=== PATIENT | female | born 1955 | race Caucasian/White ===

== ENCOUNTER → 2017-08-03 | Outpatient (CLI) | payer OTHER ==
[~2017-08-03] MED LIST: ACET-24 PO; ASPEC81 PO; ASPI81TA28 PO; ATV/1 PO; BIOTCAP2 PO; BUPR-79 PO; CALCTAB5 PO; CHOL100041 PO; CHOL1CAP74 PO; CHOL1TAB46 PO; CHOLTAB9 PO; CITA10TA8 PO; CITA40TA12 PO; CLB200 PO; CLC100 PO; CLOP1TAB15 PO; CYNI1000 INJ; FERR1TAB23 PO; FESO8TAB PO; LEVO-14 PO; MULTTAB58 PO; ONDA8TAB6 PO; PLQ200 PO; PRT/40 PO; RXC5 PO; SIMV20TA2 PO; SOLI10TA2 PO; TRAM-10 PO
== END ==
LOC: C.PAPS 09:36
PROVIDERS: ATTEND Obstetrics & Gynecology
DX: Z12.4 Encounter for screening for malignant neoplasm of cervix (principal); Z11.51 Encounter for screening for human papillomavirus (HPV)

== ENCOUNTER 2017-09-01 08:57 | Inpatient (IN) | payer OTHER ==
[2017-08-07 13:58] VITALS: BMI 32.0
--- NOTE | 2017-08-07 14:47 | PAT Medication Instructions ---
Service Date Aug 07, 2017. Current Home Medication List Aspirin (Aspirin Ec), 81 MG PO qa Biotin (Biotin 5000), 10 MG PO BID Bupropion (Wellbutrin Sr), 150 MG PO BID Cholecalciferol (D 1000), 2 TAB PO QPM Cholecalciferol (D3-1000), 1 TAB PO QAM Citalopram Hydrobromide (Celexa), 40 MG PO QAM Cyanocobalamin (Cyanocobalamin), 1,000 MCG INJ [id number] Ferrous Sulfate (Iron), 325 MG PO QAM Fesoterodine Fumarate (Toviaz), 1 TAB PO qa Lorazepam (Ativan), 1 MG PO BID Multiple Vitamin (Multivitamin), 1 TABLET PO QAM Pantoprazole (Pantoprazole Sodium), 40 MG PO BID Simvastatin (Zocor), 20 MG PO QPM Tramadol (Ultram), 50 MG PO Q6H PRN for Pain Medication Instructions For Your Scheduled Surgery - Hold the following medications 2 weeks prior to surgery: Biotin (Biotin 5000), 10 MG PO BID - Continue as directed: Cyanocobalamin (Cyanocobalamin), 1,000 MCG INJ [id number] - Hold the following medications the morning of surgery: Cholecalciferol (D3-1000), 1 TAB PO QAM Ferrous Sulfate (Iron), 325 MG PO QAM Multiple Vitamin (Multivitamin), 1 TABLET PO QAM - Take the following medications the morning of surgery with a sip of water OTHERWISE NOTHING TO EAT OR DRINK AFTER MIDNIGHT: Bupropion (Wellbutrin Sr), 150 MG PO BID Pantoprazole (Pantoprazole Sodium), 40 MG PO BID Tramadol (Ultram), 50 MG PO Q6H PRN for Pain (may take if needed up to 4 hours prior to surgery) Aspirin (Aspirin Ec), 81 MG PO qAM Citalopram Hydrobromide (Celexa), 40 MG PO QAM Fesoterodine Fumarate (Toviaz), 1 TAB PO qAM Lorazepam (Ativan), 1 MG PO BID - Take the following medications as scheduled the night before surgery: Bupropion (Wellbutrin Sr), 150 MG PO BID Pantoprazole (Pantoprazole Sodium), 40 MG PO BID Tramadol (Ultram), 50 MG PO Q6H PRN for Pain Cholecalciferol (D 1000), 2 TAB PO QPM Simvastatin (Zocor), 20 MG PO QPM Lorazepam (Ativan), 1 MG PO BID If you have any questions please call us at [phone] or [phone] or [phone]
[2017-08-07 15:22] LABS: BASO % 0.6 %; BASO ABS # 0.03 K/uL (0-0.2); COMPLETE YES; EOS % 1.7 %; HEMATOCRIT 37.2 % (37-47); IG% 0.9 %; LYMPH % 21.7 %; LYMPH ABS # 1.18 K/uL (1.2-3.4); MEAN CELL VOLUME 87.7 fL (80-100); MEAN CORPUSCULAR HGB CONC 33.1 g/dl (32-36); MEAN PLATELET VOLUME 10.4 fL (7.4-10.4); MONO % 6.8 %; NEUT % 68.3 %; PLATELET COUNT 202 K/uL (130-400); RED BLOOD COUNT 4.24 M/uL (4.2-5.4); WHITE BLOOD COUNT 5.43 K/uL (4.8-10.8)
[2017-08-07 15:30] LABS: PARTIAL THROMBOPLASTIN RATIO 1.1
[2017-08-07 15:45] LABS: BUN/CREATININE RATIO 11.6 (10-20); CREATININE 0.78 mg/dl (0.60-1.20); POTASSIUM 4.1 mmol/L (3.5-5.1)
[2017-08-08 05:56] LABS: ESTIMATED AVERAGE GLUCOSE 80 mg/dl; HA1C FLAG Normal (Normal)
[2017-08-14 10:05] LABS: URINE APPEARANCE CLEAR (CLEAR); URINE BILIRUBIN NEG (NEG); URINE COLOR YELLOW; URINE NITRITE NEG (NEG); URINE SPECIFIC GRAVITY 1.012 (1.000-1.030); UROBILINOGEN NEG (NEG)
--- NOTE | 2017-08-14 10:06 | DIAGNOSTIC IMAGING REPORT ---
CHEST 2 VIEWS ROUTINE HISTORY: Preop. COMPARISON: Chest 04/16/2013. FINDINGS: The lungs are clear. Cardiac silhouette is normal in size. No pleural effusions. No pneumothorax. Cholecystectomy. Epigastric surgical clips. IMPRESSION: No acute process. Electronically signed by: Rivera Park M.D. 08/14/2017 10:05 AM Dictated Date/Time: 08/14/2017 10:03 AM
[2017-08-14 10:09] LABS: MANUAL MICROSCOPIC REQUIRED? NO; REVIEW REQ? NO
--- NOTE | 2017-08-21 12:41 | History and Physical ---
History & Physical Date Aug 21, 2017. Chief Complaint Right knee pain History of Present Illness The patient is a 62 year old female with complaints of right knee pain. She has had pain that has come and go for some time but it is now constant. She has tried cortisone injections, NSAIDs, and PT with no relief. This affects her ADLs. She would like to proceed with a Right total knee arthroplasty. Past Medical/Surgical History Medical Problems: (1) Acute cholecystitis (2) Anemia (3) Anxiety (4) section (5) Depression (6) Diabetes (7) Gastric Bypass (8) Heart disease (9) History of percutaneous transluminal coronary angioplasty (10) Hyperlipidemia (11) Lightheadedness (12) Placement of stent in coronary artery (13) UTI (urinary tract infection) Additional History Hepatic Disease: No Endocrine Disorder: No Kidney Disease: No Hypertension: No Heart Disease: No Bleeding Tendencies: No Infectious Diseases: No Allergies Coded Allergies: Iodinated Contrast Media (Verified Allergy, Intermediate, SOB; HIVES (IVP DYE), 08/07/17) Morphine (Unverified Allergy, Mild, ITCHY, 08/07/17) Home Medications Scheduled Aspirin (Aspirin Ec), 81 MG PO qa Biotin (Biotin 5000), 10 MG PO BID Bupropion (Wellbutrin Sr), 150 MG PO BID Cholecalciferol (D 1000), 2 TAB PO QPM Cholecalciferol (D3-1000), 1 TAB PO QAM Citalopram Hydrobromide (Celexa), 40 MG PO QAM Cyanocobalamin (Cyanocobalamin), 1,000 MCG INJ [id number] Ferrous Sulfate (Iron), 325 MG PO QAM Fesoterodine Fumarate (Toviaz), 1 TAB PO qa Lorazepam (Ativan), 1 MG PO BID Multiple Vitamin (Multivitamin), 1 TABLET PO QAM Pantoprazole (Pantoprazole Sodium), 40 MG PO BID Simvastatin (Zocor), 20 MG PO QPM Scheduled PRN Tramadol (Ultram), 50 MG PO Q6H PRN for Pain Physical Examination Skin: warm/dry, no rash Eyes: normal inspection, EOMI ENT: normal ENT inspection Head: normocephalic, atraumatic Neck: supple, no adenopathy Respiratory/Chest: lungs clear, normal breath sounds Cardiovascular: regular rate, rhythm, no murmur Abdomen / GI: normal bowel sounds, non tender Extremities: normal inspection, + pertinent finding (Medial joint line tenderness, 0-120 ROM. ) Neurologic/Psych: no motor/sensory deficits, alert, oriented x 3 Diagnosis Primary osteoarthritis of right knee Plan of Treatment Patient is scheduled for a Right total knee arthroplasty. She has tried cortisone injection, PT, and NSAIDs with no relief and would like to proceed with a right total knee arthroplasty. Risks and benefits to surgery were discussed that included but no limited to increased pain, infection, DVT, need for revision surgeries, failure to relieve all symptoms, damage to blood vessels , damage to nerves, PE, and anesthesia risks were all discussed. The patient understands these risks and wishes to proceed. All questions were answered to their satisfaction.
[~2017-09-01] VITALS: Ht 172.7 cm; Wt 96.6 kg
[~2017-09-01 08:57] MED LIST changes: -ACET-24 PO; +ACETAMINOPHEN 500 MG TAB PO SCH; -ASPEC81 PO; +ATROPINE SULFATE 0.1 MG/ML 5ML SYR IV PRN; +BUPIVACAINE 0.25% 30 ML VIAL ONE; +BUPIVACAINE 0.5 % 5 MG/1 ML PF 10ML VIAL ONE; -CALCTAB5 PO; +CEFAZOLIN 2000 MG/60 ML D5W 60 ML IV SCH; -CHOL1CAP74 PO; -CHOL1TAB46 PO; -CITA10TA8 PO; -CLB200 PO; -CLC100 PO; -CLOP1TAB15 PO; +CeleBREX 200 MG CAP PO SCH; +DEXAMETHASONE 4 MG TAB PO SCH; +EpHEDrine SULFATE INJ 50 MG/ML AMP IV PRN; +FAMOTIDINE 20 MG TAB PO SCH; +FENTANYL CITRATE INJ 50 MCG/1 ML 2 ML VIAL IV PRN; +GABAPENTIN 300 MG CAP PO SCH; +LACTATED RINGER'S 1000ML 1,000 ML IV SCH; +LACTATED RINGER'S 1000ML 500 ML IV ONE; +LACTATED RINGER'S 1000ML IV SCH; -LEVO-14 PO; +METOCLOPRAMIDE HCL 10 MG TAB PO SCH; -ONDA8TAB6 PO; +ONDANSETRON INJ 2 MG/ML 2 ML VIAL IV PRN; -PLQ200 PO; +ROPIVACAINE 5MG/ML 30 ML 150 MG, BUPIVACAINE/EPINEPHR 0.5% MPF 30 ML, KETOROLAC TROMETH... INFIL SCH; -RXC5 PO; -SOLI10TA2 PO
[2017-09-01 09:12] VITALS: BP 131/104; PULSE 88; TEMP 36.9; O2SAT 97; Ht 172.7 cm; Wt 96.6 kg
[2017-09-01] MEDS ORDERED: CITA10TA8 PO (09:45)
[2017-09-01] MEDS ORDERED: MIDAZOLAM HCL 1 MG/ML 2ML VIAL ONE ×2 (10:11)
[2017-09-01] MEDS ORDERED: FENTANYL CITRATE INJ 50 MCG/1 ML 2 ML VIAL ONE (10:11)
--- NOTE | 2017-09-01 10:14 | History & Physical Bridge Note ---
H&P Re-Evaluation Bridge Note: I have examined the patient, reviewed the History & Physical and in the interval since the performance of the History & Physical I have noted the following changes of clinical significance: No changes noted
[2017-09-01] MEDS ORDERED: PROPOFOL IV EMULSION 10 MG/ML 20 ML VIAL IV ONE ×3 (10:28→14:19)
[2017-09-01] MEDS ORDERED: ONDANSETRON INJ 2 MG/ML 2 ML VIAL ONE (10:28)
[2017-09-01] MEDS ORDERED: ORTHO JOINT ANESTHETIC ONE (10:57)
[2017-09-01] MEDS ORDERED: POVIDONE-IODINE OP SOLN 30 ML BTL ONE (10:57)
[2017-09-01] MEDS ORDERED: BACITRACIN 50000 UNIT VIAL ONE (10:57)
[2017-09-01] MEDS: TRANEXAMIC ACID INJ 1,000 MG in SODIUM CHLORIDE 0.9% 100ML 100 ML IV SCH ×2 (10:59→17:41)
[2017-09-01] MEDS ORDERED: TRAMADOL HCL 50 MG TAB PO PRN (14:45)
[2017-09-01] MEDS ORDERED: ONDANSETRON INJ 2 MG/ML 2 ML VIAL IV PRN (14:45)
[2017-09-01] MEDS ORDERED: BISACODYL 10 MG SUPP PR PRN (14:45)
[2017-09-01] MEDS ORDERED: ALUMINUM/MAGNESIUM/SIMETH (MAALOX MAX) 30 ML UDC PO PRN (14:45)
[2017-09-01] MEDS ORDERED: HYDROmorphone INJ 0.5 MG/0.5 ML SYR IV PRN (14:45)
[2017-09-01] MEDS ORDERED: MAGNESIUM HYDROXIDE SUSP 30 ML UDC PO PRN (14:45)
--- NOTE | 2017-09-01 15:02 | [facility] Operative Report ---
Operative Report Operative Date Sep 01, 2017. Pre-Operative Diagnosis Right knee osteoarthritis Post-Operative Diagnosis same Procedure(s) Performed Right Total Knee Arthroplasty Surgeon Dr. Patel Pier Runner Surgeon(s) Kingsley Robert PA-C Estimated Blood Loss 20 ml Findings As above Specimens a. right knee bone and tissue Drains 2 Hemovac Anesthesia spinal Complication(s) None Disposition Recovery Room / PACU Indications 62-year-old female with progressive degenerative joint disease of the right knee. She has failed conservative measures including cortisone injection and physical therapy, anti-inflammatories and arthroscopic debridement. She wishes to proceed with a total knee arthroplasty. Description of Procedure Risks benefits and alternatives of surgery including but not limited to infection, DVT, pain, stiffness, need for surgery, damage to blood vessels, damage to nerves or risks of anesthesia were discussed with the patient and they wished to proceed. The patient was identified and the laterality was confirmed and marked. They received a preoperative antibiotic as well as a spinal anesthetic and an abductor canal block. A well-padded tourniquet was applied and then the limb was prepped and draped in standard manner with ChloraPrep. The limb was exsanguinated and the tourniquet was inflated. I made a standard anterior incision. I sharply incised the skin then utilized Bovie electrocautery as well as the aqua mantis to achieve hemostasis. I made a medial parapatellar arthrotomy immobilized the patella laterally. I then excised the anterior horns of the medial and lateral meniscus as well as the infrapatellar fat pad. I elevated a portion of the MCL off of the tibia. I then pinned into place a patient-matched distal femoral cutting guide and made my distal femoral resection. I then pinned into place the 5 in 1 femoral cutting guide. I made my anterior, posterior and chamfer cuts. I then excised the cruciates and the remaining portions of the menisci. I then pinned into place a patient- matched tibial cutting guide and made my tibial resection. I then pinned into place the tibial plate a utilizing alignment keisha to confirm rotation. The alignment keisha demonstrated that the tibial cut was in valgus. I used the varus/valgus recut guide to correct this. After using the recut guide we had good alignment. I then cut for the post. Utilizing a lamina molecular genetic pathologist and I then removed posterior osteophytes off the femur. I then placed a trial femur into position and cut for the trochlear component. I then sequentially trialed to size the polyethylene until there was good soft tissue balancing and range of motion. There was some imbalance medial versus lateral. I released her popliteus tendon and this corrected the imbalance. I then prepared the patella with a freehand cut utilizing sagittal saw. I sized and drilled for the patella. There was good tracking to the patella no lateral release was needed. All the trial components were removed. The deep tissues were anesthetized with an ortho mix solution. Then with Simplex HV with gentamicin cement, I cemented my definitive components. Definitive components, [employer] [place] 2: Femur 5 Tibia 4 Poly 15 Patella 35 oval A betadine soak was performed. A deep drain was placed. The arthrotomy was closed with interrupted #1 Vicryl suture subcutaneous tissue was closed with interrupted 2-0 Vicryl suture. The skin was closed with with river. A Silverlon was placed. Sterile dressings were applied. All needle and sponge counts were correct at the end of the procedure patient was transferred to the PACU in stable condition without apparent complication. The PA-C was necessary for assistance with procedure for assistance in positioning, prepping, draping, retraction and closure. I attest to the content of the Intraoperative Record and any orders documented therein. Any exceptions are noted below.
--- NOTE | 2017-09-01 15:14 | DIAGNOSTIC IMAGING REPORT ---
R KNEE 1 OR 2 VIEWS ROUTINE CLINICAL HISTORY: 62 years-old Female presenting with postop TKA. TECHNIQUE: Frontal and lateral views of the right knee were obtained. COMPARISON: None. FINDINGS: Postsurgical changes of total right knee arthroplasty with patellar resurfacing. No hardware complication. No malalignment. No fracture. Surgical drain and overlying skin river noted. Expected intra-articular and soft tissue emphysema. IMPRESSION: Expected postsurgical appearance status post total right knee arthroplasty with patellar resurfacing. Electronically signed by: Bora Lomeli M.D. 09/01/2017 3:13 PM Dictated Date/Time: 09/01/2017 3:12 PM
--- NOTE | 2017-09-01 15:18 | Anesthesiology Progress Note ---
Anesthesia Post Op Note Date & Time Sep 01, 2017 at 15:18 Vital Signs Pain Intensity: 0 Vital Signs Past 12 Hours Date Time Temp Pulse Resp B/P (MAP) Pulse Ox O2 Delivery O2 Flow Rate FiO2 09/01/17 15:15 36.5 73 16 126/80 96 Nasal Cannula 2 09/01/17 15:05 71 13 130/80 96 Nasal Cannula 2 09/01/17 14:55 73 13 126/83 97 Nasal Cannula 2 09/01/17 14:45 74 12 121/76 97 Nasal Cannula 2 09/01/17 14:35 36.1 79 18 122/74 98 Nasal Cannula 2 09/01/17 09:12 36.9 88 18 131/104 97 Room Air Notes Mental Status: alert / awake / arousable, participated in evaluation Pt Amnestic to Procedure: Yes Nausea / Vomiting: adequately controlled Pain: adequately controlled Airway Patency, RR, SpO2: stable & adequate BP & HR: stable & adequate Hydration State: stable & adequate Neuraxial Anesthesia: was administered, sensory block is resolving Anesthetic Complications: no major complications apparent
[2017-09-01 16:40] VITALS: BP 131/80; PULSE 72; TEMP 36.6; O2SAT 98
[2017-09-01 17:10] VITALS: BP 107/69; PULSE 77; TEMP 36; O2SAT 97
[2017-09-01] MEDS: D5W AND 1/2NSS + 20MEQ KCL 1,000 ML IV SCH (17:40)
[2017-09-01] MEDS: FERROUS GLUCONATE 324 MG TAB PO SCH (17:41)
[2017-09-01 18:10] VITALS: BP 107/69; PULSE 89; TEMP 36.6; O2SAT 94
[2017-09-01 19:42] VITALS: BP 109/60; PULSE 74; TEMP 36.6; O2SAT 94
[2017-09-01] MEDS: CEFAZOLIN IV 2,000 MG in DEXTROSE 5% 50ML 50 ML IV SCH (20:34)
[2017-09-01] MEDS: LORAZEPAM 1 MG TAB PO SCH (20:34)
[2017-09-01] MEDS: CeleBREX 200 MG CAP PO SCH (20:35)
[2017-09-01] MEDS: BuPROPion SR 150 MG TABCR PO SCH (20:35)
[2017-09-01] MEDS: ASPIRIN 81 MG ECTAB PO SCH (20:35)
[2017-09-01] MEDS: PANTOprazole SOD 40 MG TAB PO SCH (20:36)
[2017-09-01] MEDS: DOCUSATE SODIUM 100 MG CAP PO SCH (20:36)
[2017-09-01] MEDS: ACETAMINOPHEN 500 MG TAB PO SCH (20:37)
[2017-09-01] MEDS ORDERED: SIMVASTATIN 20 MG TAB PO SCH (21:00)
[2017-09-01] MEDS ORDERED: SENNA 8.6 MG TAB PO SCH (21:00)
[2017-09-01 23:07] VITALS: BP 117/70; PULSE 72; TEMP 36.6; O2SAT 98
[2017-09-02] MEDS: D5W AND 1/2NSS + 20MEQ KCL 1,000 ML IV SCH (03:10)
[2017-09-02] MEDS: CEFAZOLIN IV 2,000 MG in DEXTROSE 5% 50ML 50 ML IV SCH (03:10)
[2017-09-02 03:18] VITALS: BP 119/67; PULSE 76; TEMP 36.8; O2SAT 95
[2017-09-02] MEDS: ACETAMINOPHEN 500 MG TAB PO SCH (05:36)
[2017-09-02 06:17] LABS: HEMATOCRIT 32.7 % (37-47); MEAN CELL VOLUME 85.2 fL (80-100); MEAN CORPUSCULAR HEMOGLOBIN 27.9 pg (25-34); MEAN CORPUSCULAR HGB CONC 32.7 g/dl (32-36); MEAN PLATELET VOLUME 10.3 fL (7.4-10.4); PLATELET COUNT 174 K/uL (130-400); RED BLOOD COUNT 3.84 M/uL (4.2-5.4); WHITE BLOOD COUNT 13.53 K/uL (4.8-10.8)
[2017-09-02] MEDS: OXYCODONE HCL IR 5 MG TAB (IMMEDIATE RELEASE) PO PRN ×2 (06:25→11:10)
[2017-09-02 06:40] LABS: BUN/CREATININE RATIO 13.5 (10-20); CALCIUM 8.3 mg/dl (8.5-10.1); CREATININE 0.8 mg/dl (0.60-1.20)
--- NOTE | 2017-09-02 07:14 | Orthopedic Progress Note ---
Orthopedic Progress Note Date of Service Sep 02, 2017. Subjective Post OP Day: 1 Reports: feeling well, pain controlled w PO medications, Denies: complaints, chest pain, SOB, nausea / vomiting, light headedness, calf pain Objective calves soft nontender, N/V intact, capillary refill less than 2 sec., dressing C /D/I, A&O x3, toes mobile, hemovac drainage (180cc/8 hours) Date Time Temp Pulse Resp B/P (MAP) Pulse Ox O2 Delivery O2 Flow Rate FiO2 09/02/17 03:18 36.8 76 14 119/67 (84) 95 Room Air 09/01/17 23:40 Room Air 09/01/17 23:07 36.6 72 16 117/70 (86) 98 Room Air 09/01/17 19:42 36.6 74 17 109/60 (76) 94 Nasal Cannula 09/01/17 18:10 36.6 89 17 107/69 (82) 94 Room Air 09/01/17 17:10 36.0 77 17 107/69 (82) 97 Nasal Cannula 2.0 09/01/17 16:40 36.6 72 17 131/80 (97) 98 Nasal Cannula 2.0 09/01/17 16:10 Nasal Cannula 2.0 09/01/17 16:10 Room Air 09/01/17 15:30 72 12 135/83 98 Nasal Cannula 2 09/01/17 15:15 36.5 73 16 126/80 96 Nasal Cannula 2 09/01/17 15:05 71 13 130/80 96 Nasal Cannula 2 09/01/17 14:55 73 13 126/83 97 Nasal Cannula 2 09/01/17 14:45 74 12 121/76 97 Nasal Cannula 2 09/01/17 14:35 36.1 79 18 122/74 98 Nasal Cannula 2 09/01/17 09:12 36.9 88 18 131/104 97 Room Air Laboratory Results 24 Hours: Test 09/02/17 05:33 Hematocrit 32.7 % Hemoglobin 10.7 g/dL Assessment & Plan Assessment: POD #1 s/p Right TKA -pt.ot -dvt proph with jazmín/scd/asa -plan for d/c home today with [facility] today, leave hemovac in until tomorrow Discharge Planning Discharge Planning: home with home health DVT Prophylaxis: TEDs, SCDs, ASA Therapy: Physical Therapy
--- NOTE | 2017-09-02 07:18 | Discharge Instructions ---
Discharge Instructions Date of Service Sep 02, 2017. Admission Reason for Admission: Right Knee Osteoarthritis Discharge Discharge Diagnosis / Problem: Right Total Knee Replacement Discharge Goals Goal(s): Decrease discomfort, Improve function, Increase independence Activity Recommendations Activity Limitations: as noted below Weightbearing Status: Right weightbearing (as tolerated) . Instructions / Follow-Up Instructions / Follow-Up ACTIVITY RECOMMENDATIONS: SELF CARE INSTRUCTIONS AFTER TOTAL KNEE REPLACEMENT A. You may need to continue a physical therapy program after discharge from the hospital. There are several options available to you. Your doctor will assist you in selecting the best one for you. 1. An out-patient facility 2 to 3 times a week for therapy or home therapy. 2. Continue working on all exercises taught to you in the hospital. Your goals should be to increase bending of your knee to 90 degrees and beyond and to fully straighten your knee. B. You may progress at your own pace from walking with a walker or crutches to a cane; then to no assistive devices. C. Make walking a part of your daily routine. Be up as much as comfortable with rest periods throughout the day. Rest with leg elevation is very important. Use the ice wrap frequently for the first 3-4 weeks. D. There are no restrictions on activities. You may ride in a car, shop, participate in eap consultant and all social activities. E. Wear the long elastic stockings (TIFFANY hose) 20 hours a day for 2 weeks after surgery. They can be removed several times a day for laundering and for a bath. F. You may shower, no tub baths until cleared by your doctor. SPECIAL CARE INSTRUCTIONS: VERY IMPORTANT TO READ AND REVIEW A. There are a few signs you need to watch for after you are home. Call [facility] if you notice any of the followin. Increased severe knee pain. Some pain is expected especially when you exercise. 2. Increased swelling in your leg or knee; pain or swelling of the calf muscle in either lower leg. 3. Any fluid drainage from the incision. 4. Shortness of breath or chest pain. B. Please call [facility] at if you have any concerns or questions about your operation or recovery. The doctor or his nurse will return your call promptly. C. You must take antibiotics before dental work, bladder, bowel or other surgery. Your doctor will provide you with a permanent care to carry describing this precaution. IMPORTANT: * REMEMBER TO TAKE ASPIRIN, 81 MG, TWICE DAILY FOR 4 WEEKS UNLESS OTHERWISE DIRECTED. THIS IS YOUR BLOOD THINNER. * HIGH RISK PATIENTS MAY BE PRESCRIBED A STRONGER BLOOD THINNER. THIS WILL BE PROVIDED AT DISCHARGE. * CALL IF INCREASED PAIN, REDNESS, DRAINAGE OR FEVER GREATER THAT 101. * WEAR TIFFANY HOSE 20 HOURS PER DAY FOR 2 WEEKS. * YOU MAY HAVE A LARGE BAND-AID LIKE DRESSING (SILVERON). THIS WILL REMAIN ON YOUR INCISION FOR 7 DAYS, THEN CAN BE REMOVED. IF INCISION IS LEAKING THROUGH DRESSING, CALL THE OFFICE . * YOU MAY HAVE A Prevena wound vac- This is a large suction dressing covering your incision. This will help pull any excess drainage from the wound and allow your incision to heal properly. You may shower with this if you can keep the unit outside of the shower. If any bleeding or leakage is noted please call your doctor's office. This will remain on your incision for 7 days and then should be removed. This can be done yourself or by the home nursing staff if applicable. The entire unit is disposable once removed. Once removed, keep incision clean and dry. If redness or drainage is noted, please call your surgeon. FOLLOW UP VISIT: If appointment is not already scheduled: Please call [facility] to make a follow-up appointment for 2 weeks after your surgery at . * WILL HAVE HOME HEALTH REMOVE HEMOVAC DRAIN POD #2 ON 09/03/17 Current Hospital Diet Patient's current hospital diet: Regular Diet Discharge Diet Recommended Diet: Regular Diet Procedures Procedures Performed: Right Total Knee Arthroplasty Pending Studies Studies pending at discharge: no Laboratory Results Hemoglobin A1c Test 08/07/17 13:55 Range/Units Estimated Average Glucose 80 mg/dl Hemoglobin A1c 4.4 L 4.5-5.6 % Medical Emergencies . Who to Call and When: Medical Emergencies: If at any time you feel your situation is an emergency, please call 750 immediately. . Non-Emergent Contact Non-Emergency issues call your: Primary Care Provider, Surgeon . "Provider Documentation" section prepared by Isiah Parsons. . VTE Core Measure Inpt VTE Proph given/why not?: Other Anticoagulation (ASA 81mg po bid x 1 month ), T.E.DTorin Stockings, SCD's [place] Drug Monitoring Program Search Results: patient reviewed within database, no issues identified
[2017-09-02] MEDS ORDERED: CLB200 PO (07:22)
[2017-09-02] MEDS ORDERED: ACET-24 PO (07:22)
[2017-09-02] MEDS ORDERED: RXC5 PO (07:22)
[2017-09-02] MEDS ORDERED: CLC100 PO (07:22)
[2017-09-02] MEDS ORDERED: ASPEC81 PO (07:22)
[2017-09-02] MEDS ORDERED: TRAM-10 PO (07:22)
[2017-09-02] MEDS ORDERED: ONDA8TAB6 PO (07:22)
[2017-09-02 08:03] VITALS: BP 107/68; PULSE 70; TEMP 36.6; O2SAT 95
[2017-09-02] MEDS: LORAZEPAM 1 MG TAB PO SCH (08:56)
[2017-09-02] MEDS: DOCUSATE SODIUM 100 MG CAP PO SCH (08:57)
[2017-09-02] MEDS: PANTOprazole SOD 40 MG TAB PO SCH (08:57)
[2017-09-02] MEDS: ASPIRIN 81 MG ECTAB PO SCH (08:57)
[2017-09-02] MEDS: BuPROPion SR 150 MG TABCR PO SCH (08:57)
[2017-09-02] MEDS: FERROUS GLUCONATE 324 MG TAB PO SCH (08:58)
[2017-09-02] MEDS: CeleBREX 200 MG CAP PO SCH (08:58)
[2017-09-02] MEDS ORDERED: MULTIVITAMIN TAB PO SCH (09:00)
[2017-09-02] MEDS ORDERED: CITALOPRAM 20 MG TAB PO SCH (09:00)
[2017-09-02] MEDS ORDERED: PANTOprazole SOD 40 MG TAB PO SCH (09:00)
[2017-09-02 10:45] VITALS: BP 107/68; PULSE 70; TEMP 36.6; O2SAT 95
== END 2017-09-02 11:45 | disposition home health service (06) | DRG 470 ==
LOC: C.ACU 08:57 → C.3E 14:47 → ENRESERV 15:33
PROVIDERS: ADMIT Orthopaedic Surgery; ATTEND Orthopaedic Surgery
PROC: 0SRC0J9 Replacement of Right Knee Joint with Synthetic Substitute, Cemented, Open Approach (ICD-10-PCS; principal; 2017-09-01 11:30)
DX: M17.11 Unilateral primary osteoarthritis, right knee (principal); E78.5 Hyperlipidemia, unspecified; F32.9 Major depressive disorder, single episode, unspecified; E11.9 Type 2 diabetes mellitus without complications; D64.9 Anemia, unspecified; F41.9 Anxiety disorder, unspecified; Z79.899 Other long term (current) drug therapy; Z79.82 Long term (current) use of aspirin; Z98.84 Bariatric surgery status; Z87.440 Personal history of urinary (tract) infections; Z95.5 Presence of coronary angioplasty implant and graft

== ENCOUNTER → 2018-02-15 | Outpatient (CLI) | payer OTHER ==
[~2018-02-15] MED LIST changes: +ACET-24 PO; -ACETAMINOPHEN 500 MG TAB PO SCH; +ASPEC81 PO; -ASPI81TA28 PO; -ATROPINE SULFATE 0.1 MG/ML 5ML SYR IV PRN; -BIOTCAP2 PO; -BUPIVACAINE 0.25% 30 ML VIAL ONE; -BUPIVACAINE 0.5 % 5 MG/1 ML PF 10ML VIAL ONE; -CEFAZOLIN 2000 MG/60 ML D5W 60 ML IV SCH; -CHOL100041 PO; -CHOLTAB9 PO; +CITA10TA8 PO; -CITA40TA12 PO; +CLB200 PO; +CLC100 PO; -CYNI1000 INJ; -CeleBREX 200 MG CAP PO SCH; -DEXAMETHASONE 4 MG TAB PO SCH; -EpHEDrine SULFATE INJ 50 MG/ML AMP IV PRN; -FAMOTIDINE 20 MG TAB PO SCH; -FENTANYL CITRATE INJ 50 MCG/1 ML 2 ML VIAL IV PRN; -FESO8TAB PO; -GABAPENTIN 300 MG CAP PO SCH; -LACTATED RINGER'S 1000ML 1,000 ML IV SCH; -LACTATED RINGER'S 1000ML 500 ML IV ONE; -LACTATED RINGER'S 1000ML IV SCH; -METOCLOPRAMIDE HCL 10 MG TAB PO SCH; +ONDA-170 PO; -ONDANSETRON INJ 2 MG/ML 2 ML VIAL IV PRN; +PANT40TA2 PO; -PRT/40 PO; -ROPIVACAINE 5MG/ML 30 ML 150 MG, BUPIVACAINE/EPINEPHR 0.5% MPF 30 ML, KETOROLAC TROMETH... INFIL SCH; +RXC5 PO
[2018-02-15 11:33] LABS: BASO % 0.3 %; BASO ABS # 0.02 K/uL (0-0.2); EOS ABS # 0.06 K/uL (0-0.5); HEMATOCRIT 39.7 % (37-47); HEMOGLOBIN 12.7 g/dL (12.0-16.0); IG# 0.02 K/uL (0.00-0.02); LYMPH % 22.8 %; LYMPH ABS # 1.31 K/uL (1.2-3.4); MEAN CELL VOLUME 82.7 fL (80-100); MEAN CORPUSCULAR HEMOGLOBIN 26.5 pg (25-34); MEAN PLATELET VOLUME 10.5 fL (7.4-10.4); MONO % 7.1 %; MONO ABS # 0.41 K/uL (0.11-0.59); NEUT % 68.5 %; NEUT ABS # 3.92 K/uL (1.4-6.5); PLATELET COUNT 227 K/uL (130-400); RED CELL DISTRIBUTION WIDTH CV 14.3 % (11.5-14.5); RED CELL DISTRIBUTION WIDTH SD 43.2 fL (36.4-46.3); WHITE BLOOD COUNT 5.74 K/uL (4.8-10.8)
== END | disposition home or self-care (01) ==
LOC: C.LAB 10:20
PROVIDERS: ATTEND Orthopaedic Surgery
DX: Z96.651 Presence of right artificial knee joint (principal)